=== PATIENT | female | born 1950 | race Caucasian/White ===

== ENCOUNTER → 2017-03-22 | Outpatient (CLI) | payer MEDICARE ==
[~2017-03-22] MED LIST: B12,B-12,B 12500 MC1 PO; CIPRO250 MG PO; KETOROLAC10 MG PO; PEPCID20 MG PO; PERCOCET 325 MG1 TA2 PO
== END | disposition home or self-care (01) ==
LOC: CT 08:43
DX: R14.0 Abdominal distension (gaseous) (principal); R10.32 Left lower quadrant pain; Z87.891 Personal history of nicotine dependence; Z90.49 Acquired absence of other specified parts of digestive tract

== ENCOUNTER → 2017-04-01 | Outpatient (CLI) | payer MEDICARE | END | disposition home or self-care (01) | LOC: MAMMO 11:00 | DX: Z12.31 Encounter for screening mammogram for malignant neoplasm of breast (principal); Z13.820 Encounter for screening for osteoporosis; Z78.0 Asymptomatic menopausal state ==

== ENCOUNTER 2018-02-27 20:45 | Inpatient (IN) | payer MEDICARE ==
[~2018-02-27] VITALS: Ht 160 cm; Wt 60.6 kg
--- NOTE | ~2018-02-27 | WRIGHTHP ---
[place], [place] PATIENT HISTORY AND PHYSICAL EXAM [id number] UNIT #: [id number] ROOM: 428 DOCTOR: RAFITA WAGNER MD BIRTHDATE: [birth year] DOS: 02/27/2018 HISTORY OF PRESENT ILLNESS: The patient is a 67-year-old female with history of: 1. Nicotine smoke dependence, smoking 1 pack of cigarettes a day since 1979. 2. History of acute gallstone pancreatitis in remote past. 3. Vitamin B12 deficiency. 3. The patient is status post laparoscopic cholecystectomy on 05/15/2013. 4. History of diverticulosis and diverticulitis. 5. Benign essential hypertension. 6. COPD. 7. Mixed hyperlipidemia. The patient presented to the Emergency Department at [facility] with increasing shortness of breath, cough, wheezing and sputum since , which is for 4 days. The patient was evaluated in the Emergency Department and was quite hypoxemic. The patient was started on oxygen with nasal cannula to maintain a pulse ox of more than 90%. The patient's pulse ox had dropped down to 88% at room air when she presented to the Emergency Department. No chest pains, dizziness or fainting episodes. REVIEW OF SYSTEMS: LUNGS: Increasing shortness of breath and wheezing. GASTROINTESTINAL: No nausea, vomiting, diarrhea or constipation. CARDIOVASCULAR: No chest pain or palpitations. FAMILY HISTORY: Noncontributory. SOCIAL HISTORY: Smokes 1 pack of cigarettes a day. Denies any alcohol or drug abuse. HOME MEDICATIONS: The patient takes amlodipine and simvastatin at home. ALLERGIES: No known drug allergies. PHYSICAL EXAMINATION: GENERAL: The patient is alert and oriented x 3, in no visible distress. HEENT AND NECK: Extraocular movements are intact. Sclerae are anicteric. Oral mucosa is moist and clean. No obvious facial weakness. Neck is supple without any lymphadenopathy. No thyromegaly. No JVD. No carotid arterial bruits. LUNGS: Decreased breath sounds all over on lung auscultation and expiratory wheezing. CARDIOVASCULAR SYSTEM: Heart rate is regular in rate and rhythm. S1 and S2 normally audible. No significant murmur or any other abnormal cardiac sounds. ABDOMEN: Soft, nontender. No obvious organomegaly. Bowel sounds are present. No obvious herniation. EXTREMITIES: Without significant cyanosis or edema. Warm to touch. CENTRAL NERVOUS SYSTEM: Alert and oriented x 3. Cranial nerves II-XII are [place], [place] PATIENT HISTORY AND PHYSICAL EXAM NAME: JESSENIA MACIAS UNIT #: [id number] ROOM: [facility] DOCTOR: RAFITA WAGNER MD BIRTHDATE: [birth year] intact. Speech is normal. The patient is able to move all extremities. Normal muscle strength. Deep tendon reflexes are equal on both sides. Plantars were downgoing. VITAL SIGNS: Her blood pressure is 147/81, heart rate of 88 beats per minute, breathing 20 times per minute, temperature 98.5 degrees Fahrenheit. LABORATORY DATA: Chest x-ray is showing no acute abnormality. Normal serum electrolytes. Normal troponin level, lactic acid and normal CBC. IMPRESSION AND PLAN: 1. The patient presenting with acute exacerbation of underlying chronic obstructive pulmonary disease with continued nicotine smoke dependence and hypoxemia. The patient is being treated with oxygen, nebulizer treatments, corticosteroids, antibiotic and her breathing has started to improve. 2. Nicotine smoke dependence. The patient is smoking 1 pack of cigarettes a day since 1979, about 40 pack years. The patient is being encouraged to stop smoking cigarettes and bad effects of cigarette smoke on her health were explained to her. 3. Benign essential hypertension, treated with Norvasc. I will increase the dose to 5 mg a day. 4. Mixed hyperlipidemia, for which the patient already takes Lipitor, which will be continued. RAFITA WAGNER MD CM:HISPHYS:PATIENT HISTORY AND PHYSICAL EXAMINATION [id number] RAFITA WAGNER MD 02/28/18 1215 interface
--- NOTE | ~2018-02-27 | PR ---
[place], [place] PROGRESS NOTE NAME: JESSENIA MACIAS UNIT #: [id number] ROOM: 428 DOCTOR: RAFITA WAGNER MD BIRTHDATE: [birth year] DOS: 03/01/2018 SUBJECTIVE: The patient is, although, improving, but still short of breath and wheezing. OBJECTIVE: VITAL SIGNS: Blood pressure 128/72, heart rate 83 beats per minute, breathing 20 times a minute, temperature 98.2 degrees Fahrenheit. GENERAL APPEARANCE: The patient is alert and oriented x 3, in no visible distress. HEENT AND NECK: Exam within normal limits. CARDIOVASCULAR SYSTEM: Heart rate is regular in rate and rhythm. S1 and S2 normally audible. LUNGS: Mild expiratory wheezing all over on lung auscultation. ABDOMEN: Soft, nontender. No obvious organomegaly. Bowel sounds are present. EXTREMITIES: Without significant cyanosis or edema. IMPRESSION: 1. Acute exacerbation of chronic obstructive pulmonary disease with wheezing and shortness of breath, improving with treatment, but the patient still has shortness of breath and some wheezing, still despite of treatment. 2. Nicotine smoke dependence. The patient planning to stop history of 40 pack years smoking since 1979, 1 pack of cigarettes a day. 3. Benign essential hypertension with controlled blood pressures with treatment. 4. Mixed hyperlipidemia, treated with Lipitor. RAFITA WAGNER MD CM:PNTRANS [id number] RAFITA WAGNER MD 03/01/18 2313 interface
--- NOTE | ~2018-02-27 | DS ---
[place], [place] DISCHARGE SUMMARY NAME: JESSENIA MACIAS UNIT #: [id number] ROOM: 428 DOCTOR: RAFITA WAGNER MD BIRTHDATE: [birth year] DOS: 03/02/2018 DISCHARGE DIAGNOSES: 1. Acute exacerbation of chronic obstructive pulmonary disease. 2. Nicotine smoke dependence. 3. Acute gallstone pancreatitis in remote past. 4. Vitamin B12 deficiency. 5. Status post laparoscopic cholecystectomy, 05/15/2013. 6. History of diverticulosis and diverticulitis. 7. Chronic obstructive pulmonary disease. 8. Benign essential hypertension. 9. Mixed hyperlipidemia. HOSPITAL COURSE: The patient presented to [facility] with cough, shortness of breath, wheezing and purulent sputum for about 4 days. The patient was hypoxemic, and pulse ox had dropped to 88% at room air. The patient was diagnosed as having acute exacerbation of COPD and treated with bronchodilators, corticosteroids, oxygen and antibiotics. The patient's breathing has slowly improved and she is saturating 95% at room air with ambulation and is being discharged to home. The patient had significant wheezing and also wheezing on lung auscultation, which has improved. She still has some wheezing which will hopefully improve with continued treatment as an outpatient with Medrol Dosepak and Augmentin. The patient has to follow up with her PCP, Dr. Amanda Carey on Wednesday. 1. Nicotine smoke dependence, 1 pack of cigarettes a day since 1979, which makes it more like 40-pack years. The patient has agreed to stop smoking cigarettes and she is being sent home on a nicotine patch. 2. Mixed hyperlipidemia. The patient treated with Lipitor. 3. Benign essential hypertension, treated and controlled with Norvasc. 4. Follow up with her PCP, Dr. Carey, on Wednesday. DISCHARGE MEDICATIONS: Medrol Dosepak, Augmentin for a week, amlodipine 2.5 mg a day, simvastatin 10 mg a day, nicotine patch 21 mg daily. [place], [place] DISCHARGE SUMMARY NAME: JESSENIA MACIAS UNIT #: [id number] ROOM: 428 DOCTOR: RAFITA WAGNER MD BIRTHDATE: [birth year] RAFITA WAGNER MD CM:TRISTON [id number] RAFITA WAGNER MD 03/02/18 1901 interface
[2018-02-27 20:53] VITALS: BP 159/94
[2018-02-27 21:25] LABS: BASO # 0.1 10*3/uL (0.0-0.1); BASO % 0.6 % (0.0-1.0); EOS # 0.2 10*3/uL (0.0-0.4); EOS % 1.9 % (1.0-4.0); HEMATOCRIT 44.1 % (37.0-47.0); HEMOGLOBIN 15.1 g/dl (12.0-16.0); LYMPH # 0.8 10*3/uL (1.3-4.4); LYMPH % 9.2 % (27.0-41.0); MEAN CELL VOLUME 90.4 fl (81.0-99.0); MEAN CORPUSCULAR HGB 30.9 pg (27.0-31.0); MEAN CORPUSCULAR HGB CONC 34.2 g/dl (33.0-37.0); MEAN PLATELET VOLUME 8.8 fl (9.6-12.3); MONO # 0.9 10*3/uL (0.1-1.0); MONO % 9.8 % (3.0-9.0); NEUT # 6.9 10*3/uL (2.3-7.9); PLATELET COUNT AUTOMATED 312 10*3/uL (130-400); RED BLOOD COUNT 4.88 10*6/uL (4.10-5.10); RED CELL DISTRI WIDTH 13.1 % (0-14.5); WHITE BLOOD COUNT 8.8 10*3/uL (4.8-10.8)
[2018-02-27 21:35] LABS: ACT PARTIAL THROMBO TIME 23.5 SECONDS (20.8-31.5); INTERNATIONAL NORM RATIO 0.9 (2.0-3.5)
[2018-02-27 21:41] LABS: BILIRUBIN NEGATIVE (NEGATIVE); BLOOD 1+ (NEGATIVE); CLARITY SL CLOUDY (CLEAR); COLOR YELLOW (YELLOW); GLUCOSE NEGATIVE (NEGATIVE); KETONE 1+ (NEGATIVE); LEUKO ESTERASE NEGATIVE (NEGATIVE); NITRITE NEGATIVE (NEGATIVE); UROBILINOGEN 0.2 E.U./dl (0.2-1.0)
[2018-02-27 21:41] LABS: ALBUMIN 4.3 gm/dl (3.1-4.5); ALKALINE PHOSPHATASE 59 U/L (45-117); BUN 8 mg/dl (7-24); CHLORIDE 102 mmol/L (98-107); CREATININE 0.93 mg/dL (0.55-1.02); POTASSIUM 3.6 mmol/L (3.5-5.1); SGOT/AST 22 IU/L (3-35); SGPT/ALT 21 U/L (12-78); SODIUM 138 mmol/L (136-145); TOTAL PROTEIN 9.1 gm/dL (6.4-8.2)
[2018-02-27 21:49] LABS: TROPONIN I < 0.015 ng/ml (<0.045)
[2018-02-27 22:04] LABS: BACTERIA TRACE; EPITHELIAL CELLS 21-30
[2018-02-27 23:00] VITALS: BP 151/86
[2018-02-27] MEDS ORDERED: NORVASC2.5 MG PO (23:47)
[2018-02-27] MEDS ORDERED: SIMVASTATIN10 MG PO (23:47)
[2018-02-28 08:00] VITALS: BP 147/81
[2018-02-28 12:00] VITALS: BP 129/76
[2018-02-28 16:00] VITALS: BP 116/69
[2018-02-28 20:00] VITALS: BP 132/79
[2018-03-01] VITALS: BP 125/70
[2018-03-01 09:00] VITALS: BP 102/68
[2018-03-01 12:00] VITALS: BP 128/72
[2018-03-01 16:00] VITALS: BP 140/71
[2018-03-01 20:00] VITALS: BP 129/67
[2018-03-02] VITALS: BP 116/60
[2018-03-02 08:00] VITALS: BP 98/76
[2018-03-02] MEDS ORDERED: MEDROL DOSEPAK4 MG PO (10:56)
[2018-03-02] MEDS ORDERED: AUGMENTIN 875-875 MG PO (10:56)
[2018-03-02] MEDS ORDERED: NICOTINE PATCH1 EAC2 TD (11:02)
== END 2018-03-02 11:30 | disposition home or self-care (01) | DRG 192 ==
LOC: ED 20:45 → 4E 22:37 → EDHOLD 22:37 → 4E 22:44
PROVIDERS: Physician Assistant
DX: J44.1 Chronic obstructive pulmonary disease with (acute) exacerbation (principal); E53.8 Deficiency of other specified B group vitamins; E78.2 Mixed hyperlipidemia; I10 Essential (primary) hypertension; R09.02 Hypoxemia; F17.210 Nicotine dependence, cigarettes, uncomplicated; K57.90 Diverticulosis of intestine, part unspecified, without perforation or abscess without bleeding; Z90.49 Acquired absence of other specified parts of digestive tract; Z87.01 Personal history of pneumonia (recurrent); Z71.6 Tobacco abuse counseling

== ENCOUNTER → 2019-05-26 | Outpatient (CLI) | payer MEDICARE, OTHER ==
[~2019-05-26] MED LIST changes: +AUGMENTIN 875-875 MG PO; +MEDROL DOSEPAK4 MG PO; +NICOTINE PATCH1 EAC2 TD; +NORVASC2.5 MG PO; +SIMVASTATIN10 MG PO
== END | disposition home or self-care (01) ==
LOC: CT 13:45
DX: K57.90 Diverticulosis of intestine, part unspecified, without perforation or abscess without bleeding (principal)

== ENCOUNTER → 2019-09-06 | Day surgery (SDC) | payer MEDICARE, OTHER ==
[~2019-09-06] VITALS: Ht 160 cm; Wt 63.0 kg
[~2019-09-06] MED LIST changes: +OMEPRAZOLE20 M2 PO
[2019-09-06 09:26] VITALS: BP 158/85
[2019-09-06 10:51] VITALS: BP 106/66
[2019-09-06 11:21] VITALS: BP 144/90
== END | disposition home or self-care (01) ==
LOC: SDC 09-01 13:15
DX: D12.3 Benign neoplasm of transverse colon (principal); K29.50 Unspecified chronic gastritis without bleeding; I10 Essential (primary) hypertension; E78.00 Pure hypercholesterolemia, unspecified; E78.5 Hyperlipidemia, unspecified; K57.30 Diverticulosis of large intestine without perforation or abscess without bleeding; R14.0 Abdominal distension (gaseous); F17.210 Nicotine dependence, cigarettes, uncomplicated; Z98.51 Tubal ligation status; Z98.890 Other specified postprocedural states; Z90.49 Acquired absence of other specified parts of digestive tract

== ENCOUNTER → 2019-11-28 | Outpatient (CLI) | payer MEDICARE, OTHER ==
[2019-11-28 11:43] LABS: BASO # 0.1 10*3/uL (0.0-0.1); BASO % 0.8 % (0.0-1.0); EOS # 0.2 10*3/uL (0.0-0.4); HEMATOCRIT 44.6 % (37.0-47.0); HEMOGLOBIN 14.6 g/dl (12.0-16.0); LYMPH # 1.9 10*3/uL (1.3-4.4); LYMPH % 25.2 % (27.0-41.0); MEAN CORPUSCULAR HGB 29.8 pg (27.0-31.0); MEAN CORPUSCULAR HGB CONC 32.7 g/dl (33.0-37.0); MEAN PLATELET VOLUME 8.9 fl (9.6-12.3); MONO # 0.6 10*3/uL (0.1-1.0); MONO % 8.2 % (3.0-9.0); NEUT # 4.8 10*3/uL (2.3-7.9); NEUT % 63.5 % (47.0-73.0); PLATELET COUNT AUTOMATED 383 10*3/uL (130-400); RED CELL DISTRI WIDTH 13.1 % (0-14.5); WHITE BLOOD COUNT 7.6 10*3/uL (4.8-10.8)
[2019-11-28 12:10] LABS: ALBUMIN 3.8 gm/dl (3.1-4.5); ALKALINE PHOSPHATASE 74 U/L (45-117); BUN 9 mg/dl (7-24); CHLORIDE 107 mmol/L (98-107); CHOLESTEROL 165 mg/dL (<200); CREATININE 0.98 mg/dL (0.55-1.02); FREE T4 1.12 ng/dl (0.76-1.46); HDL CHOLESTEROL 47 mg/dl (40-60); LDL CHOLESTEROL 88 mg/dL (9-159); POTASSIUM 3.6 mmol/L (3.5-5.1); SGOT/AST 16 IU/L (3-35); SGPT/ALT 21 U/L (12-78); SODIUM 140 mmol/L (136-145); TOTAL PROTEIN 7.9 gm/dL (6.4-8.2); TRIGLYCERIDES 150 mg/dl (<150); VLDL CHOLESTEROL 30 mg/dL (6-40)
[2019-11-28 13:17] LABS: VITAMIN D, 25-HYDROXY 15.7 ng/mL (30-100)
== END | disposition home or self-care (01) ==
LOC: LAB 11:15
PROVIDERS: Internal Medicine
DX: I10 Essential (primary) hypertension (principal); E78.2 Mixed hyperlipidemia; E55.9 Vitamin D deficiency, unspecified; D52.9 Folate deficiency anemia, unspecified; D51.9 Vitamin B12 deficiency anemia, unspecified; Z00.00 Encounter for general adult medical examination without abnormal findings

== ENCOUNTER → 2020-07-11 | Outpatient (CLI) | payer MEDICARE, OTHER | END | disposition home or self-care (01) | LOC: MAMMO 06-11 15:00 | PROVIDERS: ATTEND Internal Medicine | DX: Z12.31 Encounter for screening mammogram for malignant neoplasm of breast (principal) ==

== ENCOUNTER → 2021-03-20 | Outpatient (CLI) | payer MEDICARE, OTHER | END | disposition home or self-care (01) | LOC: US 03-12 13:30 | PROVIDERS: ATTEND Internal Medicine | DX: R42 Dizziness and giddiness (principal) ==

== ENCOUNTER → 2021-03-26 | Outpatient (CLI) | payer MEDICARE, OTHER ==
[2021-03-26 11:49] LABS: BASO # 0.1 10*3/uL (0.0-0.1); BASO % 0.8 % (0.0-1.0); EOS # 0.1 10*3/uL (0.0-0.4); EOS % 1.9 % (1.0-4.0); LYMPH # 1.6 10*3/uL (1.3-4.4); LYMPH % 25.5 % (27.0-41.0); MEAN CELL VOLUME 91.5 fl (81.0-99.0); MEAN CORPUSCULAR HGB 30.1 pg (27.0-31.0); MEAN PLATELET VOLUME 8.8 fl (9.6-12.3); MONO # 0.5 10*3/uL (0.1-1.0); MONO % 8.4 % (3.0-9.0); NEUT # 3.9 10*3/uL (2.3-7.9); NEUT % 63.2 % (47.0-73.0); PLATELET COUNT AUTOMATED 385 10*3/uL (130-400); RED BLOOD COUNT 4.81 10*6/uL (4.10-5.10); WHITE BLOOD COUNT 6.2 10*3/uL (4.8-10.8)
[2021-03-26 12:17] LABS: ALBUMIN 3.5 gm/dl (3.1-4.5); ALKALINE PHOSPHATASE 63 U/L (45-117); BUN 11 mg/dl (7-24); CHLORIDE 105 mmol/L (98-107); CHOLESTEROL 164 mg/dL (<200); CREATININE 0.79 mg/dL (0.55-1.02); FREE T4 1.06 ng/dl (0.76-1.46); LDL CHOLESTEROL 87 mg/dL (9-159); POTASSIUM 3.6 mmol/L (3.5-5.1); SGOT/AST 17 IU/L (3-35); SGPT/ALT 20 U/L (12-78); SODIUM 139 mmol/L (136-145); TOTAL PROTEIN 7.8 gm/dL (6.4-8.2); TRIGLYCERIDES 112 mg/dl (<150)
== END | disposition home or self-care (01) ==
LOC: US 03-12 13:30 → LAB 10:27 → CARD 10:30
PROVIDERS: ATTEND Internal Medicine
DX: I11.9 Hypertensive heart disease without heart failure (principal); R06.02 Shortness of breath; R42 Dizziness and giddiness; F33.0 Major depressive disorder, recurrent, mild; K57.90 Diverticulosis of intestine, part unspecified, without perforation or abscess without bleeding; K57.91 Diverticulosis of intestine, part unspecified, without perforation or abscess with bleeding

== ENCOUNTER → 2022-05-05 | Outpatient (CLI) | payer OTHER ==
[2022-05-05 12:05] LABS: BASO # 0.1 10*3/uL (0.0-0.1); BASO % 0.9 % (0.0-1.0); EOS # 0.1 10*3/uL (0.0-0.4); EOS % 2.1 % (1.0-4.0); HEMATOCRIT 43.5 % (37.0-47.0); LYMPH # 1.5 10*3/uL (1.3-4.4); LYMPH % 26.7 % (27.0-41.0); MEAN CELL VOLUME 89.9 fl (81.0-99.0); MEAN CORPUSCULAR HGB 30.6 pg (27.0-31.0); MEAN PLATELET VOLUME 8.9 fl (9.6-12.3); MONO # 0.5 10*3/uL (0.1-1.0); MONO % 9.4 % (3.0-9.0); NEUT # 3.5 10*3/uL (2.3-7.9); NEUT % 60.7 % (47.0-73.0); PLATELET COUNT AUTOMATED 347 10*3/uL (130-400); RED BLOOD COUNT 4.84 10*6/uL (4.10-5.10); RED CELL DISTRI WIDTH 12.8 % (0-14.5); WHITE BLOOD COUNT 5.8 10*3/uL (4.8-10.8)
[2022-05-05 12:26] LABS: BUN 12 mg/dl (7-24); CHLORIDE 108 mmol/L (98-107); CHOLESTEROL 170 mg/dL (<200); CREATININE 0.89 mg/dL (0.55-1.02); SGOT/AST 15 IU/L (3-35); SGPT/ALT 14 U/L (12-78); SODIUM 142 mmol/L (136-145); T3 UPTAKE 33 % (31-39); TOTAL PROTEIN 7.7 gm/dL (6.4-8.2); TRIGLYCERIDES 98 mg/dl (<150)
[2022-05-05 12:33] LABS: ALKALINE PHOSPHATASE 68 U/L (45-117); FREE T4 1.02 ng/dl (0.76-1.46); LDL CHOLESTEROL 102 mg/dL (9-159)
[2022-05-05 13:04] LABS: VITAMIN D, 25-HYDROXY 22.2 ng/mL (30-100)
== END | disposition home or self-care (01) ==
LOC: LAB 11:40
PROVIDERS: ATTEND Internal Medicine
DX: I10 Essential (primary) hypertension (principal); E55.9 Vitamin D deficiency, unspecified; Z13.0 Encounter for screening for diseases of the blood and blood-forming organs and certain disorders involving the immune mechanism; Z13.21 Encounter for screening for nutritional disorder; Z13.1 Encounter for screening for diabetes mellitus; Z13.220 Encounter for screening for lipoid disorders; Z13.228 Encounter for screening for other metabolic disorders; Z13.29 Encounter for screening for other suspected endocrine disorder; Z13.6 Encounter for screening for cardiovascular disorders; Z13.9 Encounter for screening, unspecified; E78.2 Mixed hyperlipidemia

== ENCOUNTER → 2022-05-25 | Outpatient (CLI) | payer OTHER | LOC: MAMMO 09:30 | PROVIDERS: ATTEND Internal Medicine | DX: Z12.31 Encounter for screening mammogram for malignant neoplasm of breast (principal); M81.0 Age-related osteoporosis without current pathological fracture ==

== ENCOUNTER → 2023-10-29 | Outpatient (CLI) | payer OTHER ==
[2023-10-29 09:55] LABS: BASO % 0.3 % (0.0-1.0); EOS # 0.2 10*3/uL (0.0-0.4); EOS % 3.3 % (1.0-4.0); HEMATOCRIT 41.9 % (37.0-47.0); LYMPH # 1.7 10*3/uL (1.3-4.4); LYMPH % 24.6 % (27.0-41.0); MEAN CELL VOLUME 91.7 fl (81.0-99.0); MEAN CORPUSCULAR HGB 29.8 pg (27.0-31.0); MEAN CORPUSCULAR HGB CONC 32.5 g/dl (33.0-37.0); MEAN PLATELET VOLUME 8.8 fl (9.6-12.3); MONO # 0.6 10*3/uL (0.1-1.0); MONO % 9.1 % (3.0-9.0); NEUT # 4.3 10*3/uL (2.3-7.9); NEUT % 62.6 % (47.0-73.0); PLATELET COUNT AUTOMATED 324 10*3/uL (130-400); RED BLOOD COUNT 4.57 10*6/uL (4.10-5.10); RED CELL DISTRI WIDTH 13.2 % (0-14.5); WHITE BLOOD COUNT 6.9 10*3/uL (4.8-10.8)
[2023-10-29 10:34] LABS: ALKALINE PHOSPHATASE 68 U/L (46-116); BUN 12 mg/dl (9-23); CHLORIDE 105 mmol/L (98-107); CHOLESTEROL 173 mg/dL (<200); FREE T4 0.95 ng/dl (0.89-1.76); LDL CHOLESTEROL 97 mg/dL (9-159); POTASSIUM 3.5 mmol/L (3.4-5.1); SGPT/ALT 15 U/L (5-49); TOTAL PROTEIN 7.5 gm/dL (6.0-8.0); TRIGLYCERIDES 118 mg/dl (<150); VITAMIN D, 25-HYDROXY 34.9 ng/mL (30-100)
== END | disposition home or self-care (01) ==
LOC: LAB 00:25 → CT 10:00 → LAB 10:00
PROVIDERS: ATTEND Internal Medicine
DX: R06.02 Shortness of breath (principal); I10 Essential (primary) hypertension; E78.2 Mixed hyperlipidemia; E55.9 Vitamin D deficiency, unspecified

== ENCOUNTER → 2024-11-16 | Outpatient (CLI) | payer OTHER | END | disposition home or self-care (01) | LOC: CARD 00:23 | PROVIDERS: ATTEND Internal Medicine | DX: I37.1 Nonrheumatic pulmonary valve insufficiency (principal) ==

== ENCOUNTER → 2025-01-22 | Outpatient (CLI) | payer OTHER ==
[2025-01-22 15:17] LABS: BASO % 0.5 % (0.0-1.0); EOS # 0.2 10*3/uL (0.0-0.4); HEMATOCRIT 42.1 % (37.0-47.0); MEAN CELL VOLUME 89.4 fl (81.0-99.0); MEAN CORPUSCULAR HGB 29.9 pg (27.0-31.0); MEAN CORPUSCULAR HGB CONC 33.5 g/dl (33.0-37.0); MEAN PLATELET VOLUME 8.6 fl (9.6-12.3); MONO # 0.6 10*3/uL (0.1-1.0); MONO % 8.4 % (3.0-9.0); NEUT # 4.6 10*3/uL (2.3-7.9); PLATELET COUNT AUTOMATED 349 10*3/uL (130-400); RED BLOOD COUNT 4.71 10*6/uL (4.10-5.10); RED CELL DISTRI WIDTH 13.3 % (0-14.5); WHITE BLOOD COUNT 7.3 10*3/uL (4.8-10.8)
[2025-01-22 15:57] LABS: ALKALINE PHOSPHATASE 71 U/L (46-116); BUN 12 mg/dl (9-23); CHLORIDE 104 mmol/L (98-107); CHOLESTEROL 202 mg/dL (<200); LDL CHOLESTEROL 125 mg/dL (9-159); POTASSIUM 3.9 mmol/L (3.4-5.1); SGPT/ALT 29 U/L (5-49); TOTAL PROTEIN 7.9 gm/dL (6.0-8.0); TRIGLYCERIDES 117 mg/dl (<150); VITAMIN D, 25-HYDROXY 30.4 ng/mL (30-100)
== END | disposition home or self-care (01) ==
LOC: LAB 14:42
PROVIDERS: ATTEND Internal Medicine
DX: I10 Essential (primary) hypertension (principal); E78.2 Mixed hyperlipidemia; E55.9 Vitamin D deficiency, unspecified; R53.83 Other fatigue; E53.9 Vitamin B deficiency, unspecified; F17.210 Nicotine dependence, cigarettes, uncomplicated